=== PATIENT | female | born 1985 | race Caucasian/White ===

== ENCOUNTER 2023-01-21 12:53 | Outpatient (CLI) | payer MEDICAID ==
[~2023-01-21] VITALS: Ht 162.5 cm; Wt 137.0 kg
[2023-01-21 13:35] VITALS: BP 127/67
[2023-01-21 14:20] VITALS: BP 142/62
[2023-01-21 14:50] VITALS: BP 123/66
[2023-01-21 14:56] LABS: BILIRUBIN,URINE NEGATIVE (NEGATIVE); CLARITY,URINE CLEAR; COLOR,URINE YELLOW; GLUCOSE, URINE (UA) TRACE (NEGATIVE); KETONES,URINE 3+ (NEGATIVE); LEUKOCYTE ESTERASE ,URINE NEGATIVE (NEGATIVE); NITRITE,URINE POSITIVE (NEGATIVE); PROTEIN,URINE 1+ (NEGATIVE)
[2023-01-21 15:00] LABS: BACTERIA,URINE FEW /HPF; RBC,URINE 50-100 /HPF; SQUAMOUS EPITHELIAL CELL,UR 25-50 /HPF
--- NOTE | 2023-01-24 08:11 | Physician Query-Final Dx ---
Clinic Account Progress/Dx Physician Query: Please give diagnosis Please include # weeks gestation Date of Service Jan 21, 2023 at 12:53 LORIE,FebJan 24, 2023 08:11
== END 2023-01-21 16:40 | disposition home or self-care (01) ==
LOC: WSo 12:53 → LDRP 12:53 → WSo 16:40
PROVIDERS: ATTEND Obstetrics & Gynecology
DX: O47.9 False labor, unspecified (principal); Z3A.00 Weeks of gestation of pregnancy not specified
CPT/HCPCS: 81000; 87088; 99213